=== PATIENT | male | born 1970 | race Caucasian/White ===

== ENCOUNTER 2017-03-25 14:39 | Emergency (ER) | payer OTHER ==
[~2017-03-25] VITALS: Ht 172.7 cm; Wt 86.4 kg
[2017-03-25 14:50] VITALS: BP 136/79; PULSE 81; RESP 14; O2SAT 99
--- NOTE | 2017-03-25 15:41 | ED.REPORT ---
HPI-Back Pain 40 and Over Date of Service Mar 25, 2017 ED Provider: Teo Jeffery PA-C Osorio is otherwise healthy 46-year-old male with a history of back pain presenting with a complaint of right-sided lower back pain. Reports insidious onset while at work today. Describes tightening over the course the day. Pain now is aggravated by motion. Rated 6/10 at rest. Admits some referred pain in his right foot, as well as pain radiating into his left thigh. Denies numbness , tingling, weakness in lower extremity. Denies fever, DM, HIV, organ transplant , immunosuppression, recent surgery, recent infection, history of back surgery, surgical implants and IV drug use. Denies bowel/bladder dysfunction and saddle anesthesia. Denies hematuria, dysuria. Nursing Notes Stated Complaint: BACK PAIN Chief Complaint: Back Pain or Injury Nursing Notes Reviewed: Yes Allergies: Coded Allergies: No Known Allergies (Unverified , 03/25/17) Scheduled Omeprazole (Omeprazole) 20 Mg Capsule.dr 20 MG PO DAILY Prednisone (PredniSONE) 20 Mg Tablet 40 MG PO DAILY Scheduled PRN Hydrocodone-Acetaminophen 5-325 mg (Hydrocodone-Acetaminophen 5-325 mg) 1 Each Tablet 1-2 TABLET PO QID PRN PRN For Pain General Time Seen by MD: 15:01 Chief Complaint Lumbar pain Sudden in Onset?: No Past Medical History Past Medical History Denies Review of Systems Review of Systems Note: Negative unless stated otherwise in history of present illness Physical Exam General: Well appearing, well developed, well nourished. No acute distress however the patient appears to be in pain lying on the gurney with a pillow between his legs. Head: Atraumatic, normocephalic. Eyes: No scleral icterus or injection. No discharge. Vision grossly intact. ENT: Voice clear, hearing grossly intact. Respiratory: No respiratory distress, no increased work of breathing. Speaks in complete sentences. Skin: Warm and dry. Back: Normal to inspection, mild right SI tenderness, mild midline cervical spine tenderness at approximately L5, negative CVA tenderness. Reduced range of motion Neurological: Hip flexion, knee extension, ankle dorsiflexion and plantarflexion strength 5/5 B/L. Patellar and Achilles reflexes present and equal B/L. Sensation to light touch intact at medial leg, dorsal foot and lateral foot B/L. negative straight leg raise, negative cross straight leg raise.l. Psychological: alert and oriented. Speech appropriate, linear and logical. Behavior appropriate. Initial Vital Signs Vital Signs (First) Date Time Temp Pulse Resp B/P Pulse Ox O2 Delivery O2 Flow Rate FiO2 03/25/17 14:50 36.8 81 14 136/79 99 Room Air Normal Re-Eval/Medical Decision Med Decision/Clinical Course 46-year-old male with history of back pain presenting with right lower back pain worsening insidiously over the course of the day at work today. Patient is currently under Pope clamp, scheduled to have lumbar surgery in 2 weeks. Reports 6 out of 10 pain at rest, aggravated by motion. Denies red flag symptoms. Physical examination reveals a normal neurological examination though the patient appears to be in quite a bit of pain. Back pain is without red flag symptoms for acute disc herniation, cauda equina, infection, hematoma, trauma, pyelonephritis, nephrolithiasis, AAA, cancer. I believe this is musculoskeletal back pain, and aggravation of his chronic pain. Patient gets little relief from ketorolac and acetaminophen initially, is given 5 mg oxycodone, 40 mg prednisone. I believe he is stable and safe to be discharged. Discussed [id number]-[id number]-bhlevoi analgesia provided a small amount of hydrocodone supplement with precautions as well as a prescription for 3 more days of prednisone. Advised regarding primary care follow-up, provided emergency return precautions. Patient verbalized understanding of, and consent to, the plan. Discharge & Departure Impression: Primary Impression: Low back pain Chronicity: chronic Back pain laterality: right Sciatica presence: without sciatica Qualified Code: M54.5 - Low back pain Disposition: AGAINST MEDICAL ADVICE Discharge Condition All VS Reviewed: Yes Patient Instructions: Acute Low Back Pain (ED) Additional Instructions: Evaluation in the emergency department for back pain includes interview and physical examination, both of which are reassuring that her back pain is unlikely to be caused by an immediately dangerous condition. I believe this is an aggravation of your chronic back pain. Rest as much as possible over the next several days. Avoid total bedrest, rather light activity as tolerated is best. Apply ice several times a day. Gentle massage is also helpful. We have given the UA dose of steroids here in the emergency department. I will write a prescription for more to be taken over the next 3 days starting tomorrow. The pain is best treated with 800 mg of ibuprofen (Advil, Motrin) every 6 hours , or 1000 mg of acetaminophen (Tylenol) every 6 hours. These drugs can be taken at the same time for more severe pain. I have written a prescription for a small amount of hydrocodone/acetaminophen 5/ 325 mg which can be SUBSTITUTED for the Tylenol to treat more severe pain. Do not take them together, and do not drink alcohol or operate a vehicle within 4 hours of taking this medication. Follow-up and your primary care provider if your pain is not improving in a few days. Return to emergency department for new or worsening symptoms including increasing pain, fever, numbness between your legs or bowel/bladder dysfunction. Referrals: Christofer Steele MD (PCP) EDSupervising Provider for APC: Ever Hartman MD copies to: Christofer Steele MD, Seth PA-C Mar 25, 2017 15:41
[2017-03-25] MEDS ORDERED: predniSONE 20 mg Tablet PO ONE (15:45)
[2017-03-25] MEDS ORDERED: PRE20 PO (15:46)
[2017-03-25] MEDS ORDERED: HYDR-4003 PO (15:46)
[2017-03-25] MEDS ORDERED: OMEP20CA11 PO (15:46)
[2017-03-25 15:59] VITALS: BP 114/72; PULSE 72; RESP 20; O2SAT 95
== END 2017-03-25 15:46 | disposition home or self-care (01) ==
LOC: SED 14:39
DX: M54.5 Low back pain (principal); Z79.899 Other long term (current) drug therapy
CPT/HCPCS: 96372; 99283; J1885